=== PATIENT | female | born 1965 | race Caucasian/White ===

== ENCOUNTER 2017-01-13 16:04 | Inpatient (IN) | payer OTHER ==
[~2017-01-13] VITALS: Ht 162.6 cm; Wt 96.2 kg
--- NOTE | 2017-01-13 16:14 | ED.REPORT ---
HPI-General Illness Date of Service January 13, 2017 ED Provider: Dr. Fregoso 51 y/o female with a hx of seizures, depression, HTN, and GERD presents to the ED by EMS due to confusion and LOC, onset just prior to arrival. As per the EMS , the pt's found the pt collapsed on the bathroom floor When the EMS arrived, the pt was awake but very confused. She was Nursing Notes Stated Complaint: CONFUSION Chief Complaint: fall Allergies: Coded Allergies: Penicillins (Verified Allergy, Severe, Shortness of Breath, Swelling, 01/13) Scheduled Buspirone (Buspirone) 15 Mg Tablet 15 MG PO TID Calcitriol (Rocaltrol) 0.25 Mcg Capsule 0.5 MCG PO BID Calcium Carbonate (Tums) 500 Mg Tab.chew 1,500 MG PO QID Cyanocobalamin (Vitamin B-12) (Nascobal) 1 Each Seaforth 1 EACH NS WEEKLY 500 MCG ON MONDAYS Divalproex ER (Divalproex ER) 250 Mg Tab.er.24h 250 MG PO TID *DAILY DOSING ONLY* Swallowed whole without chewing to avoid local irritation of the mouth and throat. Duloxetine (Duloxetine) 60 Mg Capsule.dr 60 MG PO QAM Estradiol (Estradiol) 0.5 Mg Tablet 0.5 MG PO QAM Furosemide (Furosemide) 20 Mg Tab 20 MG PO QAM Gabapentin (Gabapentin) 300 Mg Capsule 900 MG PO TID Hydroxyzine Pamoate (HydrOXYzine Pamoate) 25 Mg Capsule 25-50 MG PO HS Levothyroxine (Levothyroxine) 137 Mcg Tablet 137 MCG PO QAM Lisinopril (Lisinopril) 10 Mg Tablet 10 MG PO QAM Methocarbamol (Methocarbamol) 750 Mg Tablet 750 MG PO BID Morphine Sulfate ER (MS Contin) 30 Mg Tablet.er 30 MG PO BID Venlafaxine ER (Venlafaxine ER) 150 Mg Tab.er.24 150 MG PO HS Scheduled PRN Cyclobenzaprine (Cyclobenzaprine) 10 Mg Tablet 10 MG PO BID PRN PRN Spasm Diclofenac Gel (Diclofenac Gel) 100 Gm Tube 4 GM TOPICAL QID PRN PRN JOINT PAIN Fluticasone Propionate (Fluticasone Propionate) 50 Mcg/Actuation Seaforth.susp 1 SPRAY NS DAILY PRN PRN RHINITIS Lidocaine (Lidoderm) 700 Mg Adh..patch 1-3 PATCH TP DAILY PRN PRN For Pain 12 HRS ON, 12 HRS OFF Methocarbamol (Methocarbamol) 750 Mg Tablet 750 MG PO BID PRN PRN For Spasm IN ADDITION TO SCHEDULED DOSE Morphine Sulfate (Morphine Sulfate) 15 Mg Tablet 15 MG PO Q4H PRN PRN For Pain Polyethylene Glycol 3350 (Polyethylene Glycol 3350) 17 Gm Powd.pack 17 GM PO DAILY PRN PRN For Constipation Promethazine (Promethazine) 25 Mg Tablet 25 MG PO Q6H PRN PRN For Nausea/ Vomiting Sumatriptan Succinate (Imitrex) 50 Mg Tablet 50 MG PO Q2H PRN PRN Headache TAKE 1 TABLET AT ONSET OF MIGRAINE, MAY REPEAT IN 2 HRS IF NEEDED. MAX 2 DOSES/24 HRS Tramadol (Tramadol) 50 Mg Tablet 50-100 MG PO Q6H PRN PRN For Pain oxyCODONE-Acetaminophen 7.5-325 mg (oxyCODONE-Acetaminophen 7.5-325 mg) 1 Each Tablet 1 TAB PO Q6H PRN PRN For Pain General Time Seen by MD: 16:13 Chief Complaint Other Physical Exam Vital Signs Vital Signs Date Time Temp Pulse Resp B/P Pulse Ox O2 Delivery O2 Flow Rate FiO2 01/13/17 16:56 100 16 131/90 99 Nasal Cannula 2 01/13/17 16:51 35.9 87 13 101/77 94 Room Air Interpretation & Diagnostics Lab Results Interpretation Result Diagram: 01/15/17 0638 01/16/17 0645 Test 01/13/17 16:38 01/13/17 17:30 Lactic Acid Level 1.3mmol/L (0.4-2.0) Salicylates Level < 3.0ug/mL (30-250) Acetaminophen Level < 15.0ug/mL Rx (10-25) Phenytoin (Dilantin) Level < 0.8uG/mL (10.0-20.0) Levetiracetam (Keppra) Level None detectedug/mL Alcohols < 10mg/dL (0-10) Iron Level 29ug/dL (35-150) Total Iron Binding Capacity 421ug/dL (250-450) Percent Iron Saturation 7%sat (15-50) Unsaturated Iron Binding 391.6ug/dL Ferritin 10ng/mL (13-150) Discharge & Departure Departure Notes See paper documentation on this patient during computer downtime. Primary Impression: Hypocalcemia Referrals: Khloe Khan MD (PCP) (Family) Cole Fregoso MD January 13, 2017 16:14 Gregory Loaiza January 13, 2017 16:23
[2017-01-13] MEDS ORDERED: 0.9% Sodium Chloride 1,000 ML IV ONE (16:20)
[2017-01-13 16:43] LABS: Mean Corpuscular Hemoglobin 21.1 pg (27.0-35.0); Mean Corpuscular Volume 72.4 fL (81-100)
[2017-01-13 16:51] VITALS: BP 101/77; PULSE 87; RESP 13; O2SAT 94
[2017-01-13 16:56] VITALS: BP 131/90; PULSE 100; RESP 16; O2SAT 99
--- NOTE | 2017-01-13 17:00 | DRSVH ---
PROCEDURE: CT BRAIN WITHOUT CONTRAST ([id number]) INDICATIONS: altered LOC TECHNIQUE: Noncontrast 4.5 mm thick angled axial sections acquired from the foramen magnum to the vertex, with c oronal reformats. COMPARISON: None. FINDINGS: Image quality: Diagnostic. Brain: There is no acute intra-axial or extra-axial hemorrhage. No extra-axial fluid collection is i dentified. There is no midline shift or mass effect. The orbits are grossly unremarkable. No large areas of diffusely decreased attenuation are evident within the brain to suggest diffuse cer ebral edema. Edema of the left parietal and potentially the left occipital lobes is identified with a blurring of the presley-white matter junction and mild focal cortical enlargement within this location . The ventricles and cortical sulci are age-appropriate. Bones: Calvarium and visualized facial bones are grossly intact. Mucosal thickening is noted involv ing the inferior maxillary sinuses versus a focal small mucous retention cysts. Otherwise, the image d paranasal sinuses and mastoid air cells are clear. IMPRESSION: 1. No acute intracranial hemorrhage. 2. Diffuse edema involving the left parietal and possibly left occipital lobes with blurring of the presley-white matter junction is suspicious for acute ischemia. Other etiologies cannot be excluded. M RI would be helpful for better evaluation. 3. Mild inferior maxillary sinus disease. Note: Findings were discussed with Dr. Fregoso at 1657 hours (PST) on 01/13/17. Dictated by: Vikram Briscoe M.D. on 01/13/2017 at 15:53 Approved by: Vikram Briscoe M.D. on 01/13/2017 at 15:59
[2017-01-13] MEDS ORDERED: Calcium GLUCOnate 10% 1 Gm/50 mL NS IV ONE ×2 (17:30)
--- NOTE | 2017-01-13 19:37 | PCM.EDPN ---
ED Note Date of Service January 13, 2017 Dr. Fregoso initially evaluated Ana Rosa Lemon. Evidently she had a syncopal episode tonight that was followed by some combative behavior for which the medics had actually give her ketamine. She was found to have severe hypocalcemia and an area of potential acute ischemic infarct on her head CT. When she woke up from the ketamine she was completely normal cognitively as well as peripheral nervous system. Central nervous system is completely intact as well per Dr. Fregoso. On my evaluation she is awake alert oriented 4. She offers no complaints. Her cranial nerves were individually tested and they are intact. She has an NIH stroke score of 0. She can read, visual acuity is intact and she has no extinction. She does seem to have brisk reflexes which could be from a stroke syndrome or her hypocalcemia. Either way her calcium was found to be low. Computers have been down slightly do not have access to look at her right now but has reported that it was less than 6. She is receiving a gram of IV calcium chloride I looked at the CT scan myself and I agree. It certainly looks abnormal. We will admit her to the hospital. We will replace her calcium. We will consider antiplatelet spaced after the hospitalist sees her and evaluate her surgical hemorrhage risk. She is status post recent thyroidectomy and parathyroidectomy. Currently she looks well. She is hemodynamically stable and she will be admitted to a telemetry bed. Alonzo Fenton DO January 13, 2017 19:37
[2017-01-13 20:08] VITALS: BP 117/64; PULSE 87; RESP 22; O2SAT 97
[2017-01-13] MEDS ORDERED: Alum-Mag Hydrox-Simeth 30 mL Suspension PO PRN (20:15)
[2017-01-13] MEDS ORDERED: Polyethylene Glycol (PEG) 17 Gm Powder PO PRN (20:15)
[2017-01-13] MEDS ORDERED: Labetalol 5 mg/mL 4 mL Inj IVPUSH PRN (20:15)
[2017-01-13] MEDS ORDERED: Ondansetron 2 mg/mL 2 mL Inj IVPUSH PRN (20:15)
[2017-01-13] MEDS ORDERED: hydrALAZINE 20 mg/mL Inj IVPUSH PRN (20:15)
[2017-01-13 20:16] LABS: Valproic Acid 23 ug/mL (50-125)
[2017-01-13 20:29] LABS: APPEARANCE,URINE CLEAR (CLEAR,HAZY); COLOR,URINE YELLOW (YELLOW); OCCULT BLOOD,URINE NEGATIVE (NEGATIVE); UROBILINOGEN,URINE NORMAL (NORMAL)
[2017-01-13 20:40] LABS: INR 0.95 ratio
[2017-01-13] MEDS ORDERED: CALC500T9 PO (20:47)
[2017-01-13] MEDS ORDERED: MS30TCR PO (20:47)
[2017-01-13] MEDS ORDERED: CALC0.257 PO (20:47)
[2017-01-13] MEDS ORDERED: MORP15TA PO (20:55)
[2017-01-13] MEDS ORDERED: HYDR-3797 PO (20:55)
[2017-01-13] MEDS ORDERED: CYCL10TA9 PO (20:55)
[2017-01-13] MEDS ORDERED: DICL100G26 TOPICAL (20:55)
[2017-01-13] MEDS ORDERED: GABA-502 PO (20:55)
[2017-01-13] MEDS ORDERED: TRAM50TA2 PO (20:55)
[2017-01-13] MEDS ORDERED: ESTR0.5T PO (20:55)
[2017-01-13] MEDS ORDERED: OXYC-465 PO (20:55)
[2017-01-13] MEDS ORDERED: METH750T3 PO (20:56)
[2017-01-13] MEDS ORDERED: FLUT15.88 NS (21:00)
[2017-01-13] MEDS ORDERED: FUR20 PO (21:00)
[2017-01-13] MEDS ORDERED: DULO60CA61 PO (21:00)
[2017-01-13] MEDS ORDERED: BUSP15TA3 PO (21:00)
[2017-01-13] MEDS ORDERED: LEVO137T2 PO (21:00)
[2017-01-13] MEDS ORDERED: VENL150T3 PO (21:00)
[2017-01-13] MEDS ORDERED: POLY17PO2 PO (21:00)
[2017-01-13] MEDS ORDERED: SUMA50TA31 PO (21:00)
[2017-01-13] MEDS ORDERED: DIVA250T12 PO (21:00)
[2017-01-13] MEDS ORDERED: LIDO700A6 TP (21:01)
[2017-01-13] MEDS ORDERED: PROM25TA14 PO (21:02)
[2017-01-13] MEDS ORDERED: LISI10TA PO (21:02)
[2017-01-13] MEDS ORDERED: CYAN1SPR2 NS (21:06)
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
[2017-01-13 21:39] VITALS: BP 119/67; PULSE 82; RESP 18; O2SAT 98
[2017-01-13 23:05] LABS: Unsaturated Iron Binding 391.6 ug/dL
[2017-01-13] MEDS ORDERED: Calcium GLUCO 10% (Gm) Inj 2 GM in 0.9% Sodium Chloride 100 ML IV ONE (23:35)
[2017-01-13] MEDS: Venlafaxine XR 75 mg ER24 Capsule PO SCH (23:39)
[2017-01-13] MEDS: Divalproex (QD) 250 mg ER24 Tablet PO SCH (23:39)
[2017-01-13] MEDS: Heparin 5,000 Unit/mL Inj SUBQ SCH (23:44)
[2017-01-14] VITALS (14 sets, daily range): BP systolic 98–128; BP diastolic 63–83; PULSE 72–90; RESP 12–24; O2SAT 95–98
--- NOTE | 2017-01-14 00:25 | NUR ---
Admission Pt admitted for fall at home. No noted bruises/abrasions. Denies pain. Hx of anxiety. Unable to do MRI despite two attempts. Reviewed fall precautions. Pt understands use of call light prior to getting up OOB She is steady on her feet. COmpliant with cares. Understands necessity of thickened liq/applesauce until AM Stroke booklet at bedside.
[2017-01-14] MEDS ORDERED: Magnesium Sulfate 50% Inj 1 GM in Dextrose 5% 50 ML IV ONE (01:30)
[2017-01-14] MEDS ORDERED: Mag Sulf 2 Gm/50mL IV Premix(Mag < 1.6 & Creat > 2) IV ONE (01:35)
[2017-01-14] MEDS ORDERED: 0.9% Sodium Chloride 500 ML IV ONE (02:10)
[2017-01-14] MEDS: HYDROcodone-APAP 5-325 mg Tablet PO PRN ×2 (05:31→21:01)
[2017-01-14 06:33] LABS: BASOPHILS % (AUTO) 1.5 % (0-3); EOSINOPHILS % (AUTO) 7.5 % (0-5); MONOCYTES % (AUTO) 12.7 % (4-12); Mean Corpuscular Hemoglobin 21.2 pg (27.0-35.0); Mean Corpuscular Volume 71.8 fL (81-100); Platelet Count 219 bil/L (150-400)
[2017-01-14 07:07] LABS: Magnesium 1.9 mg/dL (1.6-2.6)
[2017-01-14] MEDS: Divalproex (QD) 250 mg ER24 Tablet PO SCH ×3 (08:10→21:03)
[2017-01-14] MEDS: DULoxetine 30 mg DR Capsule PO SCH (08:13)
[2017-01-14] MEDS: BusPIRone 15 mg Dividose Tablet PO SCH ×3 (08:14→21:03)
[2017-01-14] MEDS: Morphine ER 15 mg (MS Contin) Tablet PO SCH ×2 (08:14→21:01)
[2017-01-14] MEDS: Heparin 5,000 Unit/mL Inj SUBQ SCH ×2 (08:15→17:58)
[2017-01-14] MEDS ORDERED: 0.9% Sodium Chloride 250 ML IV PRN (11:20)
[2017-01-14] MEDS ORDERED: Calcium GLUCO 10% (Gm) 1 Gm/10 mL 50 mL Inj IV PRN (11:20)
--- NOTE | 2017-01-14 11:39 | PCM.PNMED ---
Subjective Date of Service January 14, 2017 Subjective Doing OK this AM. Patient reports no neurological deficits. No further seizure , few muscle cramps. No other problems noted since admit. No head ache. Thyroidectomy last Monday at [facility]. Exam Vital Signs Vital Sign - Last Date Time Temp Pulse Resp B/P Pulse Ox O2 Delivery O2 Flow Rate FiO2 01/14/17 11:10 36.8 87 20 116/71 95 Room Air 01/13/17 16:56 2 Intake and Output 01/13/17 01/13/17 01/14/17 Cumulative From/Thru 15:00 23:00 07:00 01/13/17 20:03 - 01/14/17 06:45 Intake Total 500 ml 125 ml 625 ml Output Total 1500 ml 1500 ml Balance 500 ml -1375 ml -875 ml Intake Oral 125 ml 125 ml IV Total 500 ml 500 ml Output Urine Total 1500 ml 1500 ml # Voids 1 1 Exam A&O x 3, Eyes surya eom intact, no focal motor or sensory defects CV, no murmur, reg Resp; Clear GI; soft non acute, Skin; well healing ant neck surgical scar. Lab and Diagnostics Result Diagram: 01/14/17 0600 01/14/17 0600 X-Rays, CTs and MRIs PROCEDURE: CT BRAIN WITHOUT CONTRAST ([id number]) IMPRESSION: 1. No acute intracranial hemorrhage. 2. Diffuse edema involving the left parietal and possibly left occipital lobes with blurring of the presley-white matter junction is suspicious for acute ischemia. Other etiologies cannot be excluded. MRI would be helpful for better evaluation. 3. Mild inferior maxillary sinus disease. Assessment & Plan 51 yo F history of depression, htn, seizure disorder, and recent thyroidectomy who presented to the ED due to syncopal episode with noted aphasia. Admitted for evaluation of CVA vs Seizure, Hypocalcemia 1. Syncopal Episode, POA, resolved -Possibly due to Seizure secondary to multiple medications lower seizure threshold or secondary to her severe Hypocalcemia. Could also be due to a CVA since she does have the acute ischemia noted on CT scan. -Patient's Valproic acid levels were subtherapeutic and she is on multiple seizure threshold lowering medications. -continue dose of depakot, recheck level in AM -eeg 2. Left parietal-occipital abnormality on CT, possible ischemia, POA, active -As noted on CT Brain. Unsure if this represents a CVA. MRI done results pending -echo -PT/OT evaluation -Patient currently asymptomatic and passed swallow screen. -Full dose aspirin and Statin initiated -Lipid Panel and A1c pending. 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 Pt provides no s/s of acute bleeding. She has been without teeth for 2 years now and struggles to eat any high iron meals. -Ht 22.7 today, 2 unit PRC today, cbc in am -ferrous gluconate bid 5- Recent thyroidectomy and parathyroidectomy, POA, active -TSH and FT4 OK, continue synthroid .137 6-Seizure disorder, POA, active -Patient's Valproic level was subtherapeutic at 23.0 on admission -Will plan to continue the Divalproex and recheck level in am -Will implement seizure precautions. -EEG in the AM. 7. Anxiety and depression, POA, stable -Plan to continue patient's Venlafaxine, Buspirone, and Duloxetine for now. She has fairly severe anxiety -Ativan when necessary for agitation and anxiety -She will need medication reconciliation 8.H/O Hormone Replacement Therapy, POA, stable -Currently on Estradiol 0.5mg daily for years. -In this high risk patient, will decrease dose to Estradiol 0.25mg daily. She should be evaluated and tapered off as appropriate. 9- Chronic LBP, POA, stable -Patient is on high dose narcotics for her back and hip pain. Recent increased to MS Contin 30mg BID. -Will plan to continue MS Contin at 15mg BID, Will continue Methocarbamol and Gabapentin 10- Essential hypertension, POA, stable -Stable, hold Lisinopril while allowing for permissive hypertension Tylenol when necessary for fever/pain Zofran when necessary for nausea Bowel regimen when necessary for constipation CODE STATUS: Full resuscitation Disposition: Patient is admitted under inpatient status with expected length of stay greater than 2 midnights due to risk of adverse events, decompensation, and medical complexity VTE Prophylaxis: Sub-Q Heparin (Unfractionated), SCDs VTE Mechanical Devices: Intermittant Pneumatic CD Resuscitation Status: CPR: Attempt Resuscitation Josias Amador MD January 14, 2017 11:39
--- NOTE | 2017-01-14 11:42 | DRSVH ---
PROCEDURE: MRI STROKE PROTOCOL ([id number]) Pre- and post-contrast brain MRI, non-contrast brain MR angiogram, pre- and postcontrast neck MR gregory ogram INDICATIONS: SYNCOPAL EPISODE,DYSARTHRIA TECHNIQUE: Brain: Noncontrast axial T1 spin echo, axial T2 fast spin echo, sagittal and axial FLAIR, coronal T2 fast spin echo, axial gradient echo, axial diffusion and ADC through the brain. After the administr ation of contrast, axial 3D VIBE of the cranial vasculature and brain. Brain MRA: Non-contrast 3-D time of flight MR angiogram, with multiple azgaxsh-plqzrduze-uztnblvbex (MIP) reformats performed. Neck MRA: Axial and sagittal TruFISP through the neck. Coronal dynamic MR angiogram during administ ration of contrast in the arterial and venous phases, with 3-dimenstional dduedru-zifollgrh-zaasfesqm n (MIP) reformats constructed from subtraction images. COMPARISON: [facility], CT, CT NECK SOFT TISSUE W CON, 12/21/2016, 11:09. [facility], CT, CT BRAIN WO CON, 01/13/2017, 16:47. FINDINGS: Image quality: Motion artifacts are present. BRAIN: CSF spaces: Ventricles are normal in size and shape. Basal cisterns are patent. No extra-axial flu id collections. Brain: No intracranial bleeds or mass effects. Lomax-white matter interface is normal. Diffusion we ighted images show no acute ischemic insults. Brainstem appears normal. Normal intravascular flow v oids are present. No abnormal intracranial enhancement. Skull and face: Calvarial marrow signal is normal. Orbits appear normal. Sinuses: Sinuses and mastoids are clear. BRAIN MR ANGIOGRAM: Anterior circulation: Intracranial internal carotid arteries are normal in size and enhancement. Th e flow within the paired anterior cerebral arteries is normal and symmetric. The flow within the mid dle cerebral arteries is normal and symmetric. The anterior communicating artery is seen. No stenos es, occlusions, or aneurysms. Posterior circulation: The visualized portions of the vertebral arteries demonstrate normal caliber, and join to form a normal appearing basilar artery. There is origin of the left posterior cer ebral artery. The flow within the posterior cerebral arteries is normal and symmetric. No stenoses, occlusions, or aneurysms. NECK MR ANGIOGRAM: Carotids: Great vessels demonstrate a conventional anatomy as they arise from the aortic arch. The origins of the common carotid arteries appear patent. The calibers and courses of both common caroti d arteries are normal. The bifurcation regions appear normal bilaterally. The internal carotid jame pete demonstrate normal course and caliber. Posterior circulation: The origins of the vertebral arteries appear patent. More superior portions of both vertebral arteries demonstrate normal course and caliber, and join to form a normal appearing basilar artery. Miscellaneous: Subclavian arteries appear patent. Pre-contrast images through the neck show no soft tissue abnormalities. IMPRESSION: BRAIN MRI: 1. No acute intracranial abnormalities. BRAIN MR ANGIOGRAM: 1.No significant stenosis or occlusion in anterior or posterior circulations. 2. origin of the left posterior cerebral artery. NECK MR ANGIOGRAM: 1. Normal carotid arteries and vertebral arteries bilaterally. 2. A large left thyroid mass. Please correlate with findings on neck CT and thyroid ultrasound. The estimate of stenosis included in the report of the imaging study was calculated using the NASCET method Dictated by: Eugenie Torrez M.D. on 01/14/2017 at 11:34 Transcribed by: SHAHNAZ on 01/14/2017 at 11:41 Approved by: Eugenie Torrez M.D. on 01/15/2017 at 15:28
--- NOTE | 2017-01-14 12:16 | NUR ---
Evaluation completed/up ad scott Please go to "Notes" then click on "Assessments and Notes" (bottom left corner of screen). Then select appropriate discipline tab on top of screen. no further PT; OK to be up ad scott
--- NOTE | 2017-01-14 14:04 | DRSVH ---
[facility] [address] [place] [address] Echocardiogram Report Name: ABE SEGURA Date: 01/14/2017 Height: 64 in Hospital Exam Location: [facility] Weight: 212 lb Gender: Female BSA: 2.0 m2 : 1965 Age: 51 yrs BP: 118/74 mmHg Reason For Study: CVA Ordering Physician: KARLA REIS Performed By: Mikey Belle Referring Physician: Taran SOLORIO Interpretation Summary The left ventricle is normal in size, wall thickness, and systolic function without any focal wall motion abnormalities with the ejection fraction estimated to be 60-65% with diastolic parameters suggesting a relaxation abnormality of the left ventricle, consistent with normal filling pressures. The right ventricle is normal in size and function. The right ventricular systolic pressure is estimated at 26 mmHg assuming a right atrial pressure of 3 mm Hg. The left atrium is mildly dilated. Right atrial size is normal with a prominent Chiari network which is a normal variant. The interatrial septum is intact with no Doppler or contrast injection evidence for an atrial septal defect or interatrial shunt. There is mild to moderate tricuspid regurgitation but no other significant valvular heart disease. The ascending aorta is mildly enlarged. Procedure: A two-dimensional transthoracic echocardiogram with color flow and Doppler was performed. The study quality was technically adequate. There is no prior echocardiogram noted for this patient. A saline contrast injection was performed to assess for cardiac shunting. The suprasternal views were not obtained due to recent thyroid surgery. The patient was in normal sinus rhythm during the exam. Left Ventricle: The left ventricle is normal in size, wall thickness, and systolic function without any focal wall motion abnormalities. The ejection fraction is estimated to be 60-65%. Assessment of diastolic parameters indicates a relaxation abnormality of the left ventricle, consistent with normal filling pressures. Right Ventricle: The right ventricle is normal in size and function. Atria: The left atrium is mildly dilated. Right atrial size is normal. Chiari network (normal variant) is noted. The interatrial septum is intact with no evidence for an atrial septal defect. Injection of contrast documented no interatrial shunt. There is no Doppler evidence for an atrial septal defect. Mitral Valve: The mitral valve is normal in structure and function. There is trace mitral regurgitation. Aortic Valve: The aortic valve is normal in structure and function. The aortic valve is trileaflet. The aortic valve opens well. No aortic regurgitation is present. Tricuspid Valve: The tricuspid valve is normal in structure and function. There is mild to moderate tricuspid regurgitation. The right ventricular systolic pressure is estimated at 26 mmHg assuming a right atrial pressure of 3 mm Hg. Pulmonic Valve: The pulmonic valve is normal in structure and function. There is no pulmonic valvular regurgitation. There is no other significant valvular heart disease. Great Vessels: The aortic root is normal size. The ascending aorta is mildly enlarged. The pulmonary artery is normal size. The IVC is of normal diameter and collapses greater than 50% with a sniff. This suggests a low right atrial pressure of 3 mm Hg. Pericardium/ Pleura There is no pericardial effusion. There is no pleural effusion. MMode/2D Measurements & Calculations LVIDd: 5.2 cm LA dimension: 4.2 cm RA long axis Ao root diam LVIDs: 2.5 cm FS: 52.9 % LA A2 area: 22.8 cm RA area Aortic Jxn EPSS: 0.31 cm LA A4 area: 25.3 cm IVSd: 0.70 cm LA length (vol): 6.1 cm : 16.4 cm asc Aorta LVPWd: 0.78 cm LA vol: 80.4 ml RA vol: 41.4 mlDiam: 3.7 cm LA vol index RA : 20.6 mm2 IVC diam: 2.0 cm LV gonzalez. diameter/BSA LV sys. diameter/BSA (cm/m^2): 2.6 (cm/m^2): 1.2 Doppler Measurements & Calculations Ao V2 max MV E max jalen MV E/A: 0.92 TR max jalen : 149.7 cm/sec : 84.6 cm/sec Med Peak E' Jalen : 238.0 cm/sec Ao max PG MV A max jalen TR max P.7 mmHg : 9.0 mmHg : 92.0 cm/sec E/E' med: 10.1 PA V2 max: 89.0 cm/sec Ao mean PG Pulm A Revs Dur PA mean P.0 mmHg : 5.5 mmHg PA Accel Time: 0.11 sec MV A dur: 0.11 sec MV dec time Ao V2 mean PA V2 mean Pulm A Revs Dur - MV A : 0.20 sec : 113.8 cm/sec : 67.3 cm/sec Dur: -0.02 msec Ao V2 VTI PA pr(Accel) : 34.1 cm : 29.1 mmHg Reading Physician:02:04 PM
--- NOTE | 2017-01-14 15:23 | NUR ---
Social Work: Screening Data: Pt is a 51 y/o female admitted for syncope, hypocalcemia, abnormal head ct. Pt's PCP is Dr Khan, pt's insurance is [employer]. EMR reviewed. Readmit score not listed. No d/c planning needs anticipated at this time. [facility] will continue to follow if needs arise. Assessment: Pt who is independent at baseline. Plan: Pt will d/c home via POV when medically stable. No d/c planning needs anticipated at this time. [facility] will continue to follow if needs arise. FLORA Shabazz
[2017-01-14] MEDS: Calcium GLUCO 10% (Gm) Inj 2 GM in 0.9% Sodium Chloride 50 ML IV PRN (15:31)
--- NOTE | 2017-01-14 18:36 | NUR ---
Student nurse note RBC x1 infused into patient. No adverse side effects. See patient flowsheet. Second unit of blood infusing at current rate. No adverse side effects noted. See vital sign flow sheet for vital signs.
[2017-01-14] MEDS: Venlafaxine XR 75 mg ER24 Capsule PO SCH (21:08)
[2017-01-15] VITALS (8 sets, daily range): BP systolic 104–141; BP diastolic 64–81; PULSE 75–97; RESP 18–20; O2SAT 95–98
[2017-01-15] MEDS: Heparin 5,000 Unit/mL Inj SUBQ SCH ×3 (00:19→16:42)
[2017-01-15 06:58] LABS: Mean Corpuscular Hemoglobin 22.3 pg (27.0-35.0); Mean Corpuscular Volume 73.8 fL (81-100)
--- NOTE | 2017-01-15 08:33 | PCM.PNMED ---
Subjective Date of Service January 15, 2017 Subjective Feeling better, still needing IV calcium for CA <7.5. No other problems or complaints noted today. No new seizure, tolerating all medications. Exam Vital Signs Vital Sign - Last Date Time Temp Pulse Resp B/P Pulse Ox O2 Delivery O2 Flow Rate FiO2 01/15/17 06:15 36.9 78 20 128/79 95 Room Air 01/13/17 16:56 2 Intake and Output 01/14/17 01/14/17 01/15/17 Cumulative From/Thru 15:00 23:00 07:00 01/13/17 20:03 - 01/15/17 02:11 Intake Total 664 ml 1515 ml 374 ml 3178 ml Output Total 950 ml 2450 ml Balance 664 ml 565 ml 374 ml 728 ml Intake Oral 1036 ml 1161 ml IV Total 664 ml 250 ml 74 ml 1488 ml Packed Cells 229 ml 300 ml 529 ml Output Urine Total 950 ml 2450 ml # Voids 1 # Bowel Movements 1 1 Exam A&O x 3, Eyes surya eom intact, no focal motor or sensory defects CV, no murmur, reg Resp; Clear GI; soft non acute, Skin; well healing ant neck surgical scar, bit larger on the L side, bit swollen but no sign of infection. Lab and Diagnostics Result Diagram: 01/15/1763701/15/17637 X-Rays, CTs and MRIs PROCEDURE: CT BRAIN WITHOUT CONTRAST ([id number]) IMPRESSION: 1. No acute intracranial hemorrhage. 2. Diffuse edema involving the left parietal and possibly left occipital lobes with blurring of the presley-white matter junction is suspicious for acute ischemia. Other etiologies cannot be excluded. MRI would be helpful for better evaluation. 3. Mild inferior maxillary sinus disease. Assessment & Plan 51 yo F history of depression, htn, seizure disorder, and recent thyroidectomy who presented to the ED due to syncopal episode with noted aphasia. Admitted for evaluation of CVA vs Seizure, Hypocalcemia 1. Syncopal Episode, POA, resolved -Possibly due to Seizure secondary to multiple medications lower seizure threshold or secondary to her severe Hypocalcemia. Could also be due to a CVA since she does have the acute ischemia noted on CT scan. -Patient's Valproic acid levels were subtherapeutic and she is on multiple seizure threshold lowering medications. -continue dose of depakot, recheck level in AM -eeg 2. Left parietal-occipital abnormality on CT, possible ischemia, POA, active -MRI/MRA brain normal,,, no evidence of findings noted on CT, Motion artifact? 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 Jones 4- Microcytic Anemia, POA, active -Chronicity unknown, likely due to iron deficiency. Pt provides no s/s of acute bleeding. She has been without teeth for 2 years now and struggles to eat any high iron meals. -Ht 22.7 today, 2 unit PRC 01/14/17, cbc today hb now 8.6 -ferrous gluconate bid 5- Recent thyroidectomy and parathyroidectomy, POA, active -TSH and FT4 OK, continue synthroid .137 -thyroid mass L side per CT, will obtain ultrasound 6-Seizure disorder, POA, active -Patient's Valproic level was subtherapeutic at 23.0 on admission -Will plan to continue the Divalproex and recheck level in am -Will implement seizure precautions. -EEG in the AM. 7. Anxiety and depression, POA, stable -Plan to continue patient's Venlafaxine, Buspirone, and Duloxetine for now. She has fairly severe anxiety -Ativan when necessary for agitation and anxiety -She will need medication reconciliation 8.H/O Hormone Replacement Therapy, POA, stable -Currently on Estradiol 0.5mg daily for years. -In this high risk patient, will decrease dose to Estradiol 0.25mg daily. She should be evaluated and tapered off as appropriate. 9- Chronic LBP, POA, stable -Patient is on high dose narcotics for her back and hip pain. Recent increased to MS Contin 30mg BID. -Will plan to continue MS Contin at 15mg BID, Will continue Methocarbamol and Gabapentin 10- Essential hypertension, POA, stable -Stable, hold Lisinopril while allowing for permissive hypertension Tylenol when necessary for fever/pain Zofran when necessary for nausea Bowel regimen when necessary for constipation CODE STATUS: Full resuscitation Disposition: Patient is admitted under inpatient status with expected length of stay greater than 2 midnights due to risk of adverse events, decompensation, and medical complexity VTE Prophylaxis: Sub-Q Heparin (Unfractionated), SCDs VTE Mechanical Devices: Intermittant Pneumatic CD Resuscitation Status: CPR: Attempt Resuscitation Josias Amador MD January 15, 2017 08:33
[2017-01-15] MEDS: Calcium GLUCO 10% (Gm) Inj 2 GM in 0.9% Sodium Chloride 50 ML IV PRN ×2 (08:36→17:45)
[2017-01-15] MEDS: DULoxetine 30 mg DR Capsule PO SCH (08:36)
[2017-01-15] MEDS: BusPIRone 15 mg Dividose Tablet PO SCH ×3 (08:37→19:53)
[2017-01-15] MEDS: Morphine ER 15 mg (MS Contin) Tablet PO SCH ×2 (08:38→19:56)
[2017-01-15] MEDS: Divalproex (QD) 250 mg ER24 Tablet PO SCH ×3 (08:39→19:59)
--- NOTE | 2017-01-15 11:39 | NUR ---
Pt evaluated by ST on 01/14/17 and was placed on a general/thin diet. Per pt and RN report, the pt is tolerating that diet well. ST will sign off at this time.
[2017-01-15] MEDS: HYDROcodone-APAP 5-325 mg Tablet PO PRN ×5 (11:48→21:52)
--- NOTE | 2017-01-15 11:55 | DRSVH ---
PROCEDURE: US SOFT TISSUE OF HEAD OR NECK SONOGRAM INDICATIONS: Status post thyroidectomy with fullness in the left thyroid bed. TECHNIQUE: Real-time scanning was performed of the neck region of interest, with image documentation. COMPARISON: Merged With [facility], CT, CT NECK SOFT TISSUE W CON, 12/21/2016, 11:09. FINDINGS: No discrete fluid collections demonstrated within the thyroid bed. There is mild subcutaneous edema. A few scattered lymph nodes are noted neck which appear normal in size. There is segmental occlusive thrombus demonstrated within a superficial vein in the right anterior ne ck. The internal jugular vein appears patent. IMPRESSION: 1. No discrete fluid collections in the surgical bed to suggest a definite abscess or hematoma. 2. Segmental occlusion of a superficial vein in the right anterior neck compatible with thrombophleb itis. If clinical concern persists, recommend further evaluation with CT. Dictated by: Catalino Solis M.D. on 01/15/2017 at 11:46 Approved by: Catalino Solis M.D. on 01/15/2017 at 11:49
--- NOTE | 2017-01-15 14:41 | NUR ---
Neck/Thyroid US Neck/thyroid US done. Dr. Amador was notified that the result was available on line.
--- NOTE | 2017-01-15 18:11 | NUR ---
Calcium level Calcium level 6.3 this morning. Calcium gluconate 2g IV given. Repeat Calcium level 7.0 at 1600. Calcium gluconate 2g IV infusing now.
[2017-01-15] MEDS: Venlafaxine XR 75 mg ER24 Capsule PO SCH (19:52)
[2017-01-16] VITALS (8 sets, daily range): BP systolic 109–131; BP diastolic 62–82; PULSE 69–93; RESP 18–20; O2SAT 95–97
[2017-01-16] MEDS: Heparin 5,000 Unit/mL Inj SUBQ SCH ×3 (00:45→16:41)
[2017-01-16] MEDS ORDERED: diphenhydrAMINE 25 mg Capsule PO ONE (01:25)
[2017-01-16] MEDS: HYDROcodone-APAP 5-325 mg Tablet PO PRN ×5 (01:37→19:13)
--- NOTE | 2017-01-16 03:53 | NUR ---
Anxiety / Pain / Steri-strips Anxiety not under control. Patient changed into street clothes, talked about missing family and wanting to go home with statements: "I am leaving in the morning" and "I asked my to bring in my prescriptions, but he wouldn't saying I can only take medications the hospital gives me." Morphine ER 15mg BID is not effective when taking 30mg BID at home and taking Q4 15mg Morphine Sulfate PRN. And taking Tramadol 50mg Q6 at home as well. One hour and thirty minutes after receiving 2x [place] was requesting more. After receiving [place] + One Time order of Benadryl 25mg asked to have again 110 minutes later. Temazepam 15mg for Insomnia was ineffective. Due to Anxiety is constantly feeling and rubbing around steri-strips from thyroidectomy 01/10/17. Provided patient educational documentation on proper care and maintenance of steri-strips, post operative care from [employer] Patient Information documentation. Currently non-febrile without observable drainage or red streaking around incision.
[2017-01-16 07:22] LABS: Magnesium 1.7 mg/dL (1.6-2.6); Phosphorus 6.6 mg/dL (2.5-4.9)
[2017-01-16] MEDS: BusPIRone 15 mg Dividose Tablet PO SCH (08:14)
[2017-01-16] MEDS: DULoxetine 30 mg DR Capsule PO SCH (08:15)
[2017-01-16] MEDS: Divalproex (QD) 250 mg ER24 Tablet PO SCH ×3 (08:15→20:34)
[2017-01-16] MEDS: Morphine ER 15 mg (MS Contin) Tablet PO SCH (08:17)
[2017-01-16] MEDS ORDERED: Lidocaine Topical 5% Patch TOPICAL PRN (11:40)
[2017-01-16] MEDS ORDERED: Calcium Chl 10% (Gm) Inj 1 GM in Dextrose 5% 100 ML IV ONE (11:45)
[2017-01-16] MEDS ORDERED: Calcium GLUCO 10% (Gm) Inj 1 GM in 0.9% Sodium Chloride 50 ML IV SCH (12:15)
--- NOTE | 2017-01-16 12:15 | PCM.PNMED ---
Subjective Date of Service January 16, 2017 Subjective Patient states that she is feeling much better and wanting to go home. She had no further episodes of syncopal/seizure events. States that she is on a lot of pain medication at home, and she would like to go home to take her pain meds. He did place her pain medicines were held due to concern for her medical condition upon arrival, her thyroid surgeon was contacted this a.m. and he states that he agreeswith the current plan he has nothing else to add. He does state that her baseline calcium was low at 7.5 so perhaps it harder to get her up to about 7.5 she denies fevers/chills Exam Vital Signs Vital Sign - Last Date Time Temp Pulse Resp B/P Pulse Ox O2 Delivery O2 Flow Rate FiO2 01/16/17 00:37 36.8 75 20 123/80 97 Room Air 01/13/17 16:56 2 Intake and Output 01/15/17 01/15/17 01/16/17 Cumulative From/Thru 15:00 23:00 07:00 01/13/17 20:03 - 01/15/17 18:10 Intake Total 1136 ml 1216 ml 5530 ml Output Total 1600 ml 4050 ml Balance 1136 ml -384 ml 1480 ml Intake Oral 1136 ml 1096 ml 3393 ml IV Total 120 ml 1608 ml Packed Cells 529 ml Output Urine Total 1600 ml 4050 ml # Voids 1 2 # Bowel Movements 0 1 Exam Gen.: Pleasant female in no acute distress HEENT: Normocephalic, atraumatic well-healing surgical incisions below the thyroid level Neck: Negative for thyroid place, negative for JVD, Trachea central Lungs: Clear to auscultation bilaterally no crackles or wheezes Abdomen soft nondistended Extremities negative for edema Psychiatric negative for anxiety Neuro: No focal deficits IVs and Medications Medications Reviewed: Medications were reviewed in detail Lab and Diagnostics Result Diagram: 01/15/17 0638 01/15/17 0745 X-Rays, CTs and MRIs PROCEDURE: CT BRAIN WITHOUT CONTRAST ([id number]) IMPRESSION: 1. No acute intracranial hemorrhage. 2. Diffuse edema involving the left parietal and possibly left occipital lobes with blurring of the presley-white matter junction is suspicious for acute ischemia. Other etiologies cannot be excluded. MRI would be helpful for better evaluation. 3. Mild inferior maxillary sinus disease. Assessment & Plan 51 yo F history of depression, htn, seizure disorder, and recent thyroidectomy who presented to the ED due to syncopal episode with noted aphasia. Admitted for evaluation of CVA vs Seizure, Hypocalcemia 1. Syncopal Episode, POA, resolved -Possibly due to Seizure secondary to multiple medications lower seizure threshold or secondary to her severe Hypocalcemia. Could also be due to a CVA since she does have the acute ischemia noted on CT scan. -Patient's Valproic acid levels were subtherapeutic and she is on multiple seizure threshold lowering medications. -continue dose of depakot, recheck level in AM -eeg is done, normal per Dr. Lemus 2. Left parietal-occipital abnormality on CT, possible ischemia, POA, active -MRI/MRA brain normal,,, no evidence of findings noted on CT, Motion artifact? 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 Jones, patient's thyroid surgeon is contacted: Surgeon was contacted and he has no further recommendations. Does say that her baseline calcium is 7.5 prior to the surgery -- Endocrinology is consulted: Switch patient to Tums 1500 mg 4 times a day, ionized calcium levels are ordered for 01/17 4- Microcytic Anemia, POA, active -Chronicity unknown, likely due to iron deficiency. Pt provides no s/s of acute bleeding. She has been without teeth for 2 years now and struggles to eat any high iron meals. -Ht 22.7 today, 2 unit PRC 01/14/17, cbc today hb now 8.6 -ferrous gluconate bid: 5- Recent thyroidectomy and parathyroidectomy, POA, active -TSH and FT4 OK, continue synthroid .137 -thyroid mass L side per CT, will obtain ultrasound 6-Seizure disorder, POA, active -Patient's Valproic level was subtherapeutic at 23.0 on admission -Will plan to continue the Divalproex and recheck level in am -Will implement seizure precautions. -EEG in the AM.: She had the test done, f/u on results: Dr. Lemus says it is normal 7. Anxiety and depression, POA, stable -Plan to continue patient's Venlafaxine, Buspirone, and Duloxetine for now. She has fairly severe anxiety -Ativan when necessary for agitation and anxiety -- Left a message for PCP to call back patient sees Dr. Khloe berumen: Contacted PCP regarding multiple overlapping medications. PCP stated that patient is very difficult to manage and very complicated. I recommended to her that patient be seen by a psychiatrist for her anxiety as she is on 4 medications for this. Also mentioned patient being on both Robaxin and Flexeril for muscle relaxer. 8.H/O Hormone Replacement Therapy, POA, stable -Currently on Estradiol 0.5mg daily for years. -In this high risk patient, will decrease dose to Estradiol 0.25mg daily. She should be evaluated and tapered off as appropriate. 9- Chronic LBP, POA, stable -Patient is on high dose narcotics for her back and hip pain. Recent increased to MS Contin 30mg BID. restarted MS Contin 30 mg twice a day, Morphine may IR started at half dose. -- Still holding tramadol, robaxin 10- Essential hypertension, POA, stable -Still low BP, continue to hold lisinopril Tylenol when necessary for fever/pain Zofran when necessary for nausea Bowel regimen when necessary for constipation CODE STATUS: Full resuscitation Disposition: Patient is admitted under inpatient status with expected length of stay greater than 2 midnights due to risk of adverse events, decompensation, and medical complexity Pain Evaluation: Pain not Controlled VTE Prophylaxis: Sub-Q Heparin (Unfractionated), SCDs Resuscitation Status: CPR: Attempt Resuscitation Time spent 30 min Emeli Pandya DO January 16, 2017 06:14
--- NOTE | 2017-01-16 18:03 | NUR ---
Anxiety / pain Patient's pain consistently 7-8/10 during day shift on modified home pain medication regime ordered on admit. MD made aware and has adjusted pain meds. Patient has increased relief and reports pain in back and neck at 6-7/10. Pulse ox in place for safety while titrating pain meds. Patient's anxiety has been reduced (per patient self report) now that medication regime restored. Patient states "I know you guys are doing a good job". Patient calm and cooperative with care during day shift. Bed low and locked, call light in reach, care and rounding ongoing.
--- NOTE | 2017-01-16 18:55 | PCM.CHPMED ---
Subjective Date of Service: January 16, 2017 Primary Physician: Admitting Physician: Joan Robins DO Primary Care Physician: Khloe Khan MD Attending Physician: Jaon Robins DO Chief Complaint: Chief Complaint: Endocrinology Consult (Initial): Asked by Dr. Pandya to consult regarding 51 yo woman admitted for syncope experiencing post-thyroidectomy hypoparathyroidism. Pt was admitted with syncope and encephalopathy, but feels at her baseline today without complaints. 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 She was on chronic l-T4 replacement 137.5 mcg/d for presumed hypothyroidism. Her operation seems to have been near-total thyroidectomy. Pt and are under false impression that parathyroid glands were also removed, which is very unlikely. There was no ectopic parathyroid implantation procedure. She experienced post operative hypocalcemia. Her pre-operative baseline total calcium was reported to be ~7.5 mEq/dl. She was discharged home on calcitriol 0.5 mg BID and calcium carbonate 1500 mg QID. She experienced circumoral paresthesia briefly at home, which responded to oral calcium and has not recurred since 01/10/17. She has no prior history of calcium disorders. 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 She does not report diarrhea or steatorrhea. She consumes dairy products. She saw an Web Content Manager in the [facility] system. Two days after discharge, she experienced (per report) a sensation of feeling faint, attributed to hypoglycemia. While her prepared a snack, she was found minimally responsive in the bathroom. She has no recollection. reports stuttering and disorientation, but pt was physically intact, even combative with EMS. Work up for CVA and arrhythmia have been negative. She was noted to have serum total Ca++ 6.8 on admission with positive physical signs , [place] and hyperreflexia. She has received aggressive IV calcium replacement. Serum total calcium remains in range of 6.3-7.0, although serum albumin has declined from 3.7 to 3.1. Calculated ionized calcium on 01/15 was 3.46 (3.5-5.2). Serum magnesium was initially low, at 1.5, but is now normal. She has had no further paresthesia. No further syncope. Review of Systems: 11 systems reviewed: notable for + leg muscle cramps; nor circumoral or distal paresthesia; no diarrhea; no bone fractures; no kidney stones; no further syncope or encephalopathy PMH Past Medical History Seizure disorder - valproic acid GALINDO/postmenopausal - on estrogen Chronic hypothyroidism - on replacement, prior to surgery GAstric lee-en-y bypass Anxiety & depression . Allergies: Coded Allergies: Penicillins (Verified Allergy, Severe, Shortness of Breath, Swelling, 01/13) Family History Family History No thyroid cancer, neck surgery or thyroid disorder. No calcium problems. Social History Hx Alcohol Use: NoHx Substance Use: NoHx Tobacco Use: Yes Smoking Status: Current Some Day Smoker Living Arrangement: with Family Exam Vital Signs Vital Sign - Last Date Time Temp Pulse Resp B/P Pulse Ox O2 Delivery O2 Flow Rate FiO2 01/16/17 14:53 36.8 69 18 131/70 97 Room Air 01/13/17 16:56 2 Intake and Output 01/15/17 01/15/17 01/16/17 Cumulative From/Thru 15:00 23:00 07:00 01/13/17 20:03 - 01/16/17 06:50 Intake Total 1136 ml 1216 ml 1342 ml 6872 ml Output Total 1600 ml 1400 ml 5450 ml Balance 1136 ml -384 ml -58 ml 1422 ml Intake Oral 1136 ml 1096 ml 1342 ml 4735 ml IV Total 120 ml 1608 ml Packed Cells 529 ml Output Urine Total 1600 ml 1400 ml 5450 ml # Voids 1 2 # Bowel Movements 0 0 1 General: Alert, Oriented X3 Head: Normal Eyes: PERRLA, EOMI Mouth: Lips, Mouth Normal Neck: Other (low transverse surgical scar, no palpable masses, soft tissue swelling and induration) Chest & Lungs: Clear to auscultation & percussion Cardiovascular: Regular Rate/Rhythm, Normal S1, Normal S2 Abdomen: Non-tender, Non-distended Musculoskeletal: Normal Range of Motion Extremities: No cyanosis/clubbing/edma bilat, No Edema Neurological: Cranial Nerves 2-12 Intact, Sensation Intact, Cerebellar Function nl Finger-Nose, Other (postive [place]ek; reflexes 3/5 bilat) Lab and Diagnostics Labs Total Ca++ 6.7 PO$ 6.6 Mg 1.7 Alb 3.1 PTH (01/14) is pending 25-OH Vit D 6.6 ng/ml Result Diagram: 01/15/17 0638 01/16/17 0645 X-Rays, CTs and MRIs PROCEDURE: MRI STROKE PROTOCOL ([id number]) NECK MR ANGIOGRAM: 1. Normal carotid arteries and vertebral arteries bilaterally. 2. A large left thyroid mass. Please correlate with findings on neck CT and thyroid ultrasound. The estimate of stenosis included in the report of the imaging study was calculated using the NASCET method Dictated by: Eugenie Torrez M.D. on 01/14/2017 at 11:34 PROCEDURE: US SOFT TISSUE OF HEAD OR NECK SONOGRAM IMPRESSION: 1. No discrete fluid collections in the surgical bed to suggest a definite abscess or hematoma. 2. Segmental occlusion of a superficial vein in the right anterior neck compatible with thrombophlebitis. Dictated by: Catalino Solis M.D. on 01/15/2017 at 11:46 . Assessment & Plan Assessment Symptomatic hypocalcemia due to post surgical hypoparathyroidism. This may have contributed to syncope by lowering seizure threshold, or by calcium diuresis leading to hypovolemia. Complicating factor in this case is prior gastric bypass with severe hypovitaminosis D and poor calcium absorption. 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 While not true hungry bone syndrome (seen in primary hyperparathyroidism) she undoubtedly has bone calcium deficit. Hypomagnesemia may also contribute somewhat to low PTH levels. The main management issue, at present, is to find an oral regimen that maintains safe but slightly low calcium levels with minimal symptoms. She may require higher than average 1,25-OH Vit D supplementation due to loss of jejunal absorption capacity. Her hyperphosphatemia is due to PTH deficiency, but does not require specific treatment. Higher dose calcium carbonate will provide some phosphate binder. The prognosis of parathyroid recovery is unclear, and will be evaluated over time by her Darion Leary quality improvement analyst, and [place] surgeon. She will require aggressive calcium and activated vitamin D supplement. RECOMMENDATIONS: #1 Calcium carbonate 1.5 gm TID scheduled #2 discontinue IV calcium, unless clinical emergency, as this confounds the testing of the oral regimen #3 serum ionized and total calcium in the AM #4 continue Rocaltrol at 0.5 mcg BID scheduled #5 continue current thyroid hormone replacement 137.5 mcg/d #6 check magnesium and supplement orally to mid-normal range if tolerated #7 check Trousseau and Chvostek sign when serum Ca++ stabilized at >7.0 with minimally low ionized calcium Thank you for this interesting consult. I will continue to follow. I can be reached at [phone]. Problems: Pain Evaluation: Pain not Controlled VTE Prophylaxis: Sub-Q Heparin (Unfractionated), SCDs VTE Mechanical Devices: Intermittant Pneumatic CD Resuscitation Status: CPR: Attempt Resuscitation Time spent 75 minutes Abdiaziz Gallardo MD January 16, 2017 18:55
[2017-01-16] MEDS: Morphine ER 30 mg (MS Contin) Tablet PO SCH (20:28)
[2017-01-16] MEDS: Venlafaxine XR 75 mg ER24 Capsule PO SCH (20:35)
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
[2017-01-16] MEDS: REMOVE XX SCH (22:48)
[2017-01-17] VITALS (7 sets, daily range): BP systolic 111–134; BP diastolic 71–83; PULSE 74–85; RESP 18; O2SAT 95–97
[2017-01-17] MEDS: Heparin 5,000 Unit/mL Inj SUBQ SCH ×3 (00:40→17:08)
[2017-01-17] MEDS: HYDROcodone-APAP 5-325 mg Tablet PO PRN ×5 (02:06→21:45)
--- NOTE | 2017-01-17 05:46 | NUR ---
Pain: Medicated for pain x2 tonight. Pain reported to back, hips, shoulders. Able to get some light sleep between care.
[2017-01-17] MEDS: Divalproex (QD) 250 mg ER24 Tablet PO SCH ×3 (08:09→21:02)
[2017-01-17] MEDS: Morphine ER 30 mg (MS Contin) Tablet PO SCH ×2 (08:10→21:01)
--- NOTE | 2017-01-17 13:22 | NUR ---
SW - Readiness for Discharge Data: Pt is on day 4 of hospitalization for syncope, hypocalcemia, abnorman head CT. EMR reviewed. Per morning rounds pt is not medically ready for discharge, is being switched to PO medication and will likely discharge tomorrow. PT and ST have cleared pt to return home, no needs. Pt to discharge home via family when medically ready. No further needs assessed. SW will continue to follow. Assessment: Pt who is independent at baseline Plan: Pt likely to discharge home via POV when medically ready. NO further needs assessed. SW will continue to follow. FLORA Castorena
--- NOTE | 2017-01-17 18:41 | PCM.CHPMED ---
Subjective Date of Service: January 17, 2017 Primary Physician: Admitting Physician: Joan Robins DO Primary Care Physician: Khloe Khan MD Attending Physician: Joan Robins DO Chief Complaint: Chief Complaint: Endocrinology Inpatient Consult (subsequent): Follow-up to initial endocrine consultation on 01/16 consult regarding 51 yo woman admitted for syncope experiencing post-thyroidectomy hypoparathyroidism. History of Present Illness: Pt. was admitted with syncope and encephalopathy, but feels at her baseline. No further episodes of confusion or syncope. states her mental functioning is at baseline. PMH Allergies: Coded Allergies: Penicillins (Verified Allergy, Severe, Shortness of Breath, Swelling, 01/13) Social History Hx Alcohol Use: NoHx Substance Use: NoHx Tobacco Use: Yes Smoking Status: Current Some Day Smoker Living Arrangement: with Family Exam Vital Signs Vital Sign - Last Date Time Temp Pulse Resp B/P Pulse Ox O2 Delivery O2 Flow Rate FiO2 01/17/17 16:07 36.7 82 18 130/83 95 Room Air 01/13/17 16:56 2 Intake and Output 01/16/17 01/16/17 01/17/17 Cumulative From/Thru 15:00 23:00 07:00 01/13/17 20:03 - 01/17/17 06:26 Intake Total 650 ml 400 ml 7922 ml Output Total 1600 ml 7050 ml Balance -950 ml 400 ml 872 ml Intake Oral 650 ml 400 ml 5785 ml IV Total 1608 ml Packed Cells 529 ml Output Urine Total 1600 ml 7050 ml # Voids 4 6 # Bowel Movements 0 0 1 General: Alert, Oriented X3 Head: Normal Eyes: PERRLA, EOMI Mouth: Mucous Membr Moist/[place] Neck: Other (healing surgical scar without induration, erythema or exudate.) Chest & Lungs: Auscultation (normal) Cardiovascular: Regular Rate/Rhythm, Normal S1, Normal S2, No Murmurs/Rubs/ Gallops Abdomen: Non-tender, Non-distended Musculoskeletal: Unremarkable Neurological: Grossly Neurologically Intact (reflexes 3+ symmetric), Cranial Nerves 2-12 Intact, Strength Normal 4/4 ext Additional Information: Trousseau sign positive within 1 minute of suprasystolic blood pressure cuff inflation. Lab and Diagnostics Labs Serum total calcium today 6.8 with albumin 3.3. Result Diagram: 01/15/17 0638 01/17/17 0650 12-lead ECG 01/17/17 EKG with normal sinus rhythm normal axes and intervals. QTC is now 460 ms (was 487 on admission) Additional Diagnostics: EEG is unremarkable. Assessment & Plan Assessment Symptomatic hypocalcemia due to post surgical hypoparathyroidism. She demonstrates clinical signs of hypocalcemia with hyperreflexia, [place] sign, Trousseau sign. Her baseline presurgery serum calcium was 7.5, but she is now significantly lower. She was on 1.5 g calcium carbonate 4 times a day with 1, 25 dihydroxy vitamin D (Rocaltrol) 0.5 g twice a day prior to admission. This regimen is not sustained adequate calcium so far, likely due to poor vitamin D and calcium absorption. Fortunately her QTC is not prolonged and she has had no seizures. We will increase both vitamin D and calcium today and if serum calcium is greater than 7.0 then she may be discharged on her increased regimen. It is unclear whether hypocalcemia contributed to her syncope and encephalopathy. This may have contributed to syncope by lowering seizure threshold, or by calcium diuresis leading to hypovolemia. Complicating factor in this case is prior gastric bypass with severe hypovitaminosis D, due to reduced jejunal absorption sites.. 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 Hypomagnesemia may also contribute somewhat to low PTH levels. The main management issue, at present, is to find an oral regimen that maintains safe but slightly low calcium levels with minimal symptoms. She is not RECOMMENDATIONS: #1 increase Calcium carbonate 2 g 4 times a day scheduled #2 discontinue IV calcium, unless clinical emergency, as this confounds the testing of the oral regimen #3 increase Rocaltrol from 0.5 mcg to 1.0 g BID scheduled #5 continue current thyroid hormone replacement 137.5 mcg/d #6 check total serum calcium and magnesium in a.m. Thank you for this interesting consult. I will continue to follow. I can be reached at [phone]. I am happy to see patient for outpatient follow-up in endocrinology clinic if referral is submitted at time of discharge. Problems: Pain Evaluation: Pain not Controlled VTE Prophylaxis: Sub-Q Heparin (Unfractionated), SCDs VTE Mechanical Devices: Intermittant Pneumatic CD Resuscitation Status: CPR: Attempt Resuscitation Time spent 30 minutes Abdiaziz Gallardo MD January 17, 2017 18:41
--- NOTE | 2017-01-17 20:49 | PCM.PNMED ---
Subjective Date of Service January 17, 2017 Subjective Patient is seen and examined. Earlier in the day she was getting restless in her room, wanted to go home. I encouraged her to walk as much as possible, she may take the telemetry off for showering. She calmed down and agreed to stay. We emphasized the importance of titrating her oral medications before she goes home. Exam Vital Signs Vital Sign - Last Date Time Temp Pulse Resp B/P Pulse Ox O2 Delivery O2 Flow Rate FiO2 01/17/17 20:04 36.4 74 18 134/71 96 Room Air 01/13/17 16:56 2 Intake and Output 01/16/17 01/16/17 01/17/17 Cumulative From/Thru 15:00 23:00 07:00 01/13/17 20:03 - 01/17/17 06:26 Intake Total 650 ml 400 ml 7922 ml Output Total 1600 ml 7050 ml Balance -950 ml 400 ml 872 ml Intake Oral 650 ml 400 ml 5785 ml IV Total 1608 ml Packed Cells 529 ml Output Urine Total 1600 ml 7050 ml # Voids 4 6 # Bowel Movements 0 0 1 Exam Gen.: Pleasant female in no acute distress HEENT: Normocephalic, atraumatic well-healing surgical incisions below the thyroid level Neck: Negative for thyroid place, negative for JVD, Trachea central Lungs: Clear to auscultation bilaterally no crackles or wheezes Abdomen soft nondistended Extremities negative for edema Psychiatric negative for anxiety Neuro: No focal deficits, positive chovostek sign IVs and Medications IV Fluids None Medications Reviewed: Medications were reviewed in detail Lab and Diagnostics Laboratory Tests Test 01/17/17 06:50 Sodium Level 139mEq/L (134-144) Potassium Level 4.4mEq/L (3.5-5.2) Chloride Level 98mEq/L (97-108) Carbon Dioxide Level 27mmol/L (18-29) Blood Urea Nitrogen 9mg/dL (6-24) Creatinine 0.60mg/dL (0.57-1.00) Estimat Glomerular Filtration Rate 152mL/min (>59) Glucose Level 90mg/dL (60-99) Calcium Level 6.8mg/dL (8.5-10.1) Ionized Calcium (Calculated) 3.35mg/dL (3.5-5.2) Total Bilirubin 0.2mg/dL (0.0-1.2) Aspartate Amino Transf (AST/SGOT) 18U/L (0-50) Alanine Aminotransferase (ALT/SGPT) 16U/L (0-32) Alkaline Phosphatase 68U/L (25-150) Total Protein 5.6g/dL (6.4-8.4) Albumin 3.3g/dL (3.4-5.0) Microbiology 01/13/17 Blood Culture - Preliminary, Resulted No growth at 2 days; culture examined... 01/14/17 Stool Occult Blood (NATALIE) - Final, Complete Result Diagram: 01/15/17 0638 01/17/17 0650 X-Rays, CTs and MRIs PROCEDURE: CT BRAIN WITHOUT CONTRAST ([id number]) IMPRESSION: 1. No acute intracranial hemorrhage. 2. Diffuse edema involving the left parietal and possibly left occipital lobes with blurring of the presley-white matter junction is suspicious for acute ischemia. Other etiologies cannot be excluded. MRI would be helpful for better evaluation. 3. Mild inferior maxillary sinus disease. " Neck US IMPRESSION: 1. No discrete fluid collections in the surgical bed to suggest a definite abscess or hematoma. 2. Segmental occlusion of a superficial vein in the right anterior neck compatible with thrombophlebitis. If clinical concern persists, recommend further evaluation with CT." Assessment & Plan 51 yo F history of depression, htn, seizure disorder, and recent thyroidectomy who presented to the ED due to syncopal episode with noted aphasia. Admitted for evaluation of CVA vs Seizure, Hypocalcemia 1. Syncopal Episode, POA, resolved -Possibly due to Seizure secondary to multiple medications lower seizure threshold or secondary to her severe Hypocalcemia. Could also be due to a CVA since she does have the acute ischemia noted on CT scan. -Patient's Valproic acid levels were subtherapeutic and she is on multiple seizure threshold lowering medications. -continue dose of depakot, recheck level in AM -eeg is done, normal per Dr. Lemus 2. Left parietal-occipital abnormality on CT, possible ischemia, POA, active -MRI/MRA brain normal,,, no evidence of findings noted on CT, Motion artifact? 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 Jones, patient's thyroid surgeon is contacted: Surgeon was contacted and he has no further recommendations. Does say that her baseline calcium is 7.5 prior to the surgery -- Endocrinology is consulted: Switch patient to Tums 1500 mg 4 times a day, ionized calcium levels are ordered for 01/17 -- Dr. Gallardo's recommendations from 01/17:"#1 increase Calcium carbonate 2 g 4 times a day scheduled #2 discontinue IV calcium, unless clinical emergency, as this confounds the testing of the oral regimen #3 increase Rocaltrol from 0.5 mcg to 1.0 g BID scheduled" -- Encouraged patient to wait until Dr. Gallardo figures out the home-going dose for her calcium and calcitriol. She is in agreement 4- Microcytic Anemia, POA, active -Chronicity unknown, likely due to iron deficiency. Pt provides no s/s of acute bleeding. She has been without teeth for 2 years now and struggles to eat any high iron meals. -Ht 22.7 today, 2 unit PRC 01/14/17, cbc today hb now 8.6 -ferrous gluconate bid: 5- Recent thyroidectomy and parathyroidectomy, POA, active -TSH and FT4 OK, continue synthroid .137 -thyroid mass L side per CT, will obtain ultrasound 6-Seizure disorder, POA, active -Patient's Valproic level was subtherapeutic at 23.0 on admission -Will plan to continue the Divalproex and recheck level in am -Will implement seizure precautions. -EEG in the AM.: She had the test done, f/u on results: Dr. Lemus says it is normal 7. Anxiety and depression, POA, stable -Plan to continue patient's Venlafaxine, Buspirone, and Duloxetine for now. She has fairly severe anxiety -Ativan when necessary for agitation and anxiety -- Left a message for PCP to call back patient sees Dr. Khloe berumen: Contacted PCP regarding multiple overlapping medications. PCP stated that patient is very difficult to manage and very complicated. I recommended to her that patient be seen by a psychiatrist for her anxiety as she is on 4 medications for this. Also mentioned patient being on both Robaxin and Flexeril for muscle relaxer. 8.H/O Hormone Replacement Therapy, POA, stable -Currently on Estradiol 0.5mg daily for years. -In this high risk patient, will decrease dose to Estradiol 0.25mg daily. She should be evaluated and tapered off as appropriate. 9- Chronic LBP, POA, stable -Patient is on high dose narcotics for her back and hip pain. Recent increased to MS Contin 30mg BID. restarted MS Contin 30 mg twice a day, Morphine IR started at full dose. -- Still holding tramadol, robaxin 10- Essential hypertension, POA, stable -We will start lisinopril 517 a.m. 11. Superficial thrombophlebitis of neck: -- We will consider ordering a follow-up ultrasound if she complains of pain or symptoms Tylenol when necessary for fever/pain Zofran when necessary for nausea Bowel regimen when necessary for constipation CODE STATUS: Full resuscitation Disposition: Patient is admitted under inpatient status with expected length of stay greater than 2 midnights due to risk of adverse events, decompensation, and medical complexity Pain Evaluation: Adequate Pain Control VTE Prophylaxis: Sub-Q Heparin (Unfractionated), SCDs VTE Mechanical Devices: Intermittant Pneumatic CD Resuscitation Status: CPR: Attempt Resuscitation Time spent 25 minutes Emeli Pandya DO January 17, 2017 20:49
[2017-01-17] MEDS: Venlafaxine XR 75 mg ER24 Capsule PO SCH (21:03)
[2017-01-17] MEDS: REMOVE XX SCH (22:46)
[2017-01-18] MEDS: Heparin 5,000 Unit/mL Inj SUBQ SCH ×2 (00:51→08:57)
[2017-01-18 01:16] VITALS: BP 128/71; PULSE 72; RESP 18; O2SAT 97
--- NOTE | 2017-01-18 04:28 | NUR ---
PAIN/ACTIVITY Patient has continued to c/o chronic pain, managed with normal routine of pain medications. Somewhat more anxious, ready to discharge and has been pacing more in her room and asking frequently for snacks. Had to set limits on nighttime snacks and encourage to sleep.
[2017-01-18] MEDS: HYDROcodone-APAP 5-325 mg Tablet PO PRN ×3 (04:44→12:29)
[2017-01-18 04:49] VITALS: BP 121/72; PULSE 80; RESP 18; O2SAT 98
[2017-01-18 08:00] LABS: Magnesium 1.9 mg/dL (1.6-2.6); Phosphorus 7.2 mg/dL (2.5-4.9)
[2017-01-18] MEDS: Morphine ER 30 mg (MS Contin) Tablet PO SCH (08:46)
[2017-01-18] MEDS: Divalproex (QD) 250 mg ER24 Tablet PO SCH ×2 (08:48→12:31)
[2017-01-18 09:08] VITALS: BP 121/72; PULSE 80; RESP 18; O2SAT 99
[2017-01-18 11:27] VITALS: PULSE 83
--- NOTE | 2017-01-18 11:55 | PCM.CHPMED ---
Subjective Date of Service: January 18, 2017 Primary Physician: Admitting Physician: Joan Robins DO Primary Care Physician: Khloe Khan MD Attending Physician: Joan Robins DO Chief Complaint: Chief Complaint: Endocrinology Inpatient Consult (subsequent): Follow-up to initial endocrine consultation on 01/16 consult regarding 51 yo woman admitted for syncope experiencing post-thyroidectomy hypoparathyroidism. History of Present Illness: Pt. was admitted with syncope and encephalopathy, which has not returned. Currently she feels at her baseline. Spontaneous leg muscle cramps have improved. Rocaltrol was increased to 1 g twice a day and calcium carbonate was increased to 2000 mg 4 times a day yesterday evening. PMH Allergies: Coded Allergies: Penicillins (Verified Allergy, Severe, Shortness of Breath, Swelling, 01/13) Social History Hx Alcohol Use: NoHx Substance Use: NoHx Tobacco Use: Yes Smoking Status: Current Some Day Smoker Living Arrangement: with Family Exam Vital Signs Vital Sign - Last Date Time Temp Pulse Resp B/P Pulse Ox O2 Delivery O2 Flow Rate FiO2 01/18/17 11:27 83 01/18/17 09:08 36.6 18 121/72 99 Room Air 01/13/17 16:56 2 Intake and Output 01/17/17 01/17/17 01/18/17 Cumulative From/Thru 15:00 23:00 07:00 01/13/17 20:03 - 01/18/17 06:17 Intake Total 800 ml 800 ml 9522 ml Output Total 7050 ml Balance 800 ml 800 ml 2472 ml Intake Oral 800 ml 800 ml 7385 ml IV Total 1608 ml Packed Cells 529 ml Output Urine Total 7050 ml # Voids 5 6 17 # Bowel Movements 0 0 1 General: Alert, Oriented X3 Head: Other ([place] sign is not reactive today) Neck: Tenderness, Other (postsurgical induration left greater than right, no erythema, no exudate, mild tenderness) Chest & Lungs: Auscultation (normal) Cardiovascular: Regular Rate/Rhythm Abdomen: Non-tender, Non-distended Extremities: No cyanosis/clubbing/edma bilat Neurological: Cranial Nerves 2-12 Intact, Other (reflexes 3+ symmetric bilateral. Trousseau sign positive.) Lab and Diagnostics Labs Ionized calcium calculation: 3.46 on 01/15, 3.35 on 01/17, reporting 47 on 01/18 ( 3.5-5.2) Total serum calcium today 6.9 with most recent albumin 3.1 PTH level is pending from 01/14 TSH 0.583, free T4 1 0.13 on 01/14 Result Diagram: 01/15/17 0638 01/18/17 0720 Assessment & Plan Assessment She is now minimally symptomatic with improve muscle cramps. QTC was mildly prolonged on admission is now improved. Continues to show carpopedal spasm but ionized calcium is nearly normal. Complicating factor in this case is prior gastric bypass with severe hypovitaminosis D, due to reduced jejunal absorption sites. She will require high-dose vitamin D and calcium supplementation. 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 Hypomagnesemia may also contribute somewhat to low PTH levels. She has significant hyperphosphatemia due to PTH deficiency. RECOMMENDATIONS: #1 discharge on Calcium carbonate 2 g 4 times a day scheduled #2 discharge with new prescription for Rocaltrol 1.0 g BID scheduled #3 continue current thyroid hormone replacement 137.5 mcg/d #4 she has appointment with me in endocrinology clinic at 3 PM on 01/20/17 #5 please order an ambulatory renal panel to be performed in the a.m. on 01/20 Thank you for this interesting consult. I will continue to follow. I can be reached at [phone]. I am happy to see patient for outpatient follow-up in endocrinology clinic if referral is submitted at time of discharge. Problems: Pain Evaluation: Adequate Pain Control VTE Prophylaxis: Sub-Q Heparin (Unfractionated), SCDs VTE Mechanical Devices: Intermittant Pneumatic CD Resuscitation Status: CPR: Attempt Resuscitation Time spent 25 minutes Abdiaziz Gallardo MD January 18, 2017 11:55
[2017-01-18] MEDS ORDERED: CALC0.257 PO (12:08)
[2017-01-18] MEDS ORDERED: CALC500T53 PO (12:08)
[2017-01-18] MEDS ORDERED: POLY17PO6 PO (12:08)
[2017-01-18] MEDS ORDERED: FERR325T20 PO (12:08)
--- NOTE | 2017-01-18 12:13 | PCM.DIMED ---
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 Please follow up with your PCP on continuation of iron supplementation. Diet Heart Healthy Activity No restrictions Call your provider Fever or Chills, Shortness of breath, Bleeding, Chest pain, Vomitting, Excessive diarrhea, Weakness (unilateral), Other Patient Instructions Follow-up plan See Dr. Gallardo on 01/20/17 as you are scheduled F/U with PCP in 7-10 days F/U with your thyroid surgeon as previously scheduled F/U BMP, phos, mag, calcium, ionized calcium prior to appointment with Dr. Gallardo on 01/20/17 F/U H&H prior to f/u with PCP Emeli Pandya DO January 18, 2017 12:12
--- NOTE | 2017-01-18 12:13 | PCM.DC.MED ---
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 No acute intracranial hemorrhage. 2. Diffuse edema involving the left parietal and possibly left occipital lobes with blurring of the presley-white matter junction is suspicious for acute ischemia. Other etiologies cannot be excluded. MRI would be helpful for better evaluation. 3. Mild inferior maxillary sinus disease. " Neck US IMPRESSION: 1. No discrete fluid collections in the surgical bed to suggest a definite abscess or hematoma. 2. Segmental occlusion of a superficial vein in the right anterior neck compatible with thrombophlebitis. If clinical concern persists, recommend further evaluation with CT. Brief History Pt. was admitted with syncope and encephalopathy, which has not returned. Currently she feels at her baseline. Spontaneous leg muscle cramps have improved. Rocaltrol was increased to 1 g twice a day and calcium carbonate was increased to 2000 mg 4 times a day yesterday evening. Hospital Course 51 yo F history of depression, htn, seizure disorder, and recent thyroidectomy who presented to the ED due to syncopal episode with noted aphasia. Admitted for evaluation of CVA vs Seizure, Hypocalcemia 1. Syncopal Episode, POA, resolved -Possibly due to Seizure secondary to multiple medications lower seizure threshold or secondary to her severe Hypocalcemia. Could also be due to a CVA since she does have the acute ischemia noted on CT scan. -Patient's Valproic acid levels were subtherapeutic and she is on multiple seizure threshold lowering medications. -continue dose of depakot, recheck level in AM -eeg is done, normal per Dr. Lemus 2. Left parietal-occipital abnormality on CT, possible ischemia, POA, active -MRI/MRA brain normal,,, no evidence of findings noted on CT, Motion artifact? 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 Jones, patient's thyroid surgeon is contacted: Surgeon was contacted and he has no further recommendations. Does say that her baseline calcium is 7.5 prior to the surgery -- Endocrinology is consulted: Switch patient to Tums 1500 mg 4 times a day, ionized calcium levels are ordered for 01/17 -- Dr. Gallardo's recommendations from 01/17:"#1 increase Calcium carbonate 2 g 4 times a day scheduled -- This is the regimen patient will be discharged on. -- Patient is ambulating in the [place], feeling much bettwe and asking to go home 4- Microcytic Anemia, POA, active -Chronicity unknown, likely due to iron deficiency. Pt provides no s/s of acute bleeding. She has been without teeth for 2 years now and struggles to eat any high iron meals. -Ht 22.7 today, 2 unit PRC 01/14/17 -ferrous gluconate bid: --stable 5- Recent thyroidectomy and parathyroidectomy, POA, active -TSH and FT4 OK, continue synthroid .137 -thyroid mass L side per CT, probably post surgical changes 6-Seizure disorder, POA, active -Patient's Valproic level was subtherapeutic at 23.0 on admission -Will plan to continue the Divalproex and recheck level in am -Will implement seizure precautions. -EEG in the AM.: She had the test done, f/u on results: Dr. Lemus says it is normal 7. Anxiety and depression, POA, stable -Plan to continue patient's Venlafaxine, Buspirone, and Duloxetine for now. She has fairly severe anxiety -Ativan when necessary for agitation and anxiety -- Left a message for PCP to call back patient sees Dr. Khloe stacy-ed: Contacted PCP regarding multiple overlapping medications. PCP stated that patient is very difficult to manage and very complicated. I recommended to her that patient be seen by a psychiatrist for her anxiety as she is on 4 medications for this. Also mentioned patient being on both Robaxin and Flexeril for muscle relaxer. 8.H/O Hormone Replacement Therapy, POA, stable -Currently on Estradiol 0.5mg daily for years. -In this high risk patient, PCP is requested to consider tapering patient off. 9- Chronic LBP, POA, stable -Patient is on high dose narcotics for her back and hip pain. Recent increased to MS Contin 30mg BID. restarted MS Contin 30 mg twice a day, Morphine IR started at full dose. -- Still holding tramadol, robaxin 10- Essential hypertension, POA, stable -We will start lisinopril 01/18 a.m. 11. Superficial thrombophlebitis of neck: -- We will consider ordering a follow-up ultrasound if she complains of pain or symptoms Tylenol when necessary for fever/pain Zofran when necessary for nausea Bowel regimen when necessary for constipation CODE STATUS: Full resuscitation Exam Vital Signs (Last) Date Time Temp Pulse Resp B/P Pulse Ox O2 Delivery O2 Flow Rate FiO2 01/18/17 11:27 83 01/18/17 09:08 36.6 18 121/72 99 Room Air 01/13/17 16:56 2 Exam Gen.: Pleasant female in no acute distress HEENT: Normocephalic, atraumatic well-healing surgical incisions below the thyroid level Neck: Negative for thyroid place, negative for JVD, Trachea central Lungs: Clear to auscultation bilaterally no crackles or wheezes Abdomen soft nondistended Extremities negative for edema Psychiatric negative for anxiety Neuro: No focal deficits Test 01/13/17 16:38 01/13/17 17:30 01/13/17 19:47 01/13/17 20:05 Hemoglobin A1c 5.5% (4.8-5.6) Lactic Acid Level 1.3mmol/L (0.4-2.0) Salicylates Level < 3.0ug/mL (30-250) Acetaminophen Level < 15.0ug/mL Rx (10-25) Phenytoin (Dilantin) Level < 0.8uG/mL (10.0-20.0) Levetiracetam (Keppra) Level None detectedug/mL Alcohols < 10mg/dL (0-10) Iron Level 29ug/dL (35-150) Total Iron Binding Capacity 421ug/dL (250-450) Percent Iron Saturation 7%sat (15-50) Unsaturated Iron Binding 391.6ug/dL Ferritin 10ng/mL (13-150) Urine Color Yellow (YELLOW) Urine Appearance Clear (CLEAR,HAZY) Urine pH 6.0 (5.0-8.0) Urine Specific [place] 1.010 (1.003-1.035) Urine Protein Negativemg/dL (NEG,TRACE) Urine Glucose (UA) Negativemg/dL (NEGATIVE) Urine Ketones Negativemg/dL (NEGATIVE) Urine Occult Blood Negative (NEGATIVE) Urine Nitrite Negative (NEGATIVE) Urine Bilirubin Negative (NEGATIVE) Urine Urobilinogen Normalmg/dL (NORMAL) Urine Leukocyte Esterase Negative (NEGATIVE) Urine RBC 0-2/hpf (0-2) Urine WBC 0-5/hpf (0-5) Urine Epithelial Cells Few/hpf (NONE-MOD) Urine Crystals None seen (NONE SEEN) Urine Bacteria None/hpf (NONE-FEW) Urine Hyaline Casts None/lpf (NONE) Urine Granular Casts None seen (NONE SEEN) Urine Waxy Casts None seen (NONE SEEN) Urine Red Blood Cell Casts None seen (NONE SEEN) Urine White Blood Cell Casts None seen (NONE SEEN) Urine Mucus Present (None Seen) Urine Trichomonas None seen (NONE SEEN) Urine Yeast None (NONE SEEN) Urine Culture Reflexed Not indicated Prothrombin Time 10.1sec (8.1-12.5) Prothromb Time International Ratio 0.95ratio Test 01/13/17 22:45 01/13/17 23:45 01/14/17 06:00 01/15/17 06:38 Triglycerides Level 127mg/dL (0-149) Cholesterol Level 129mg/dL (100-199) LDL Cholesterol, Calculated 51.600mg/dL (0-99) VLDL Cholesterol 25.400mg/dL HDL Cholesterol 52mg/dL (>39) Cholesterol/HDL Ratio 2.48 (0.0-4.4) Vitamin D 25-Hydroxy 6.6ng/mL (30.0-100.0) Neutrophils (%) (Auto) 45.0% (40-74) Lymphocytes (%) (Auto) 32.6% (14-46) Monocytes (%) (Auto) 12.7% (4-12) Eosinophils (%) (Auto) 7.5% (0-5) Basophils (%) (Auto) 1.5% (0-3) Thyroid Stimulating Hormone (TSH) 0.583uIU/mL (0.450-4.500) Free Thyroxine 1.13ng/dL (0.82-1.77) White Blood Count 3.2th/mm3 (3.8-10.1) Red Blood Count 3.86mil/mm3 (3.90-5.20) Hemoglobin 8.6g/dL (12.0-15.6) Hematocrit 28.5% (35.0-46.0) Mean Corpuscular Volume 73.8fL (81-100) Mean Corpuscular Hemoglobin 22.3pg (27.0-35.0) Mean Corpuscular Hemoglobin Concent 30.2% (32.0-37.0) Red Cell Distribution Width 16.0% (12.3-15.4) Platelet Count 234bil/L (150-400) Valproic Acid (Depakene) Level 35ug/mL (50-125) Test 01/17/17 06:50 01/18/17 07:20 Estimat Glomerular Filtration Rate 152mL/min (>59) Total Bilirubin 0.2mg/dL (0.0-1.2) Aspartate Amino Transf (AST/SGOT) 18U/L (0-50) Alanine Aminotransferase (ALT/SGPT) 16U/L (0-32) Alkaline Phosphatase 68U/L (25-150) Sodium Level 138mEq/L (134-144) Potassium Level 4.7mEq/L (3.5-5.2) Chloride Level 98mEq/L (97-108) Carbon Dioxide Level 29mmol/L (18-29) Blood Urea Nitrogen 12mg/dL (6-24) Creatinine 0.59mg/dL (0.57-1.00) Glucose Level 95mg/dL (60-99) Calcium Level 6.9mg/dL (8.5-10.1) Ionized Calcium (Calculated) 3.47mg/dL (3.5-5.2) Phosphorus Level 7.2mg/dL (2.5-4.9) Magnesium Level 1.9mg/dL (1.6-2.6) Total Protein 5.4g/dL (6.4-8.4) Albumin 3.1g/dL (3.4-5.0) Discharge Medications Discharge Medications Buspirone (Buspirone) 15 Mg Tablet 15 MG PO TID (Reported) Calcitriol (Rocaltrol) 0.25 Mcg Capsule 1 MCG PO BID Prescribed by: EMELI CHUA DO Calcium Carbonate (Calcium Carbonate) 200 Mg Tab.chew 2,000 MG PO QID Prescribed by: EMELI CHUA DO Cyanocobalamin (Vitamin B-12) (Nascobal) 1 Each [place] 1 EACH NS WEEKLY (Reported ) 500 MCG ON MONDAYS Divalproex ER (Divalproex ER) 250 Mg Tab.er.24h 250 MG PO TID (Reported) *DAILY DOSING ONLY* Swallowed whole without chewing to avoid local irritation of the mouth and throat. Duloxetine (Duloxetine) 60 Mg Capsule.dr 60 MG PO QAM (Reported) Estradiol (Estradiol) 0.5 Mg Tablet 0.5 MG PO QAM (Reported) Ferrous Gluconate (Ferrous Gluconate) 324 Mg Tablet 324 MG PO TIDWM Prescribed by: EMELI CHUA DO Furosemide (Furosemide) 20 Mg Tab 20 MG PO QAM (Reported) Gabapentin (Gabapentin) 300 Mg Capsule 900 MG PO TID (Reported) Hydroxyzine Pamoate (HydrOXYzine Pamoate) 25 Mg Capsule 25-50 MG PO HS (Reported ) Levothyroxine (Levothyroxine) 137 Mcg Tablet 137 MCG PO QAM (Reported) Lisinopril (Lisinopril) 10 Mg Tablet 10 MG PO QAM (Reported) Morphine Sulfate ER (MS Contin) 30 Mg Tablet.er 30 MG PO BID (Reported) Venlafaxine ER (Venlafaxine ER) 150 Mg Tab.er.24 150 MG PO HS (Reported) As needed Cyclobenzaprine (Cyclobenzaprine) 10 Mg Tablet 10 MG PO BID PRN PRN Spasm ( Reported) Diclofenac Gel (Diclofenac Gel) 100 Gm Tube 4 GM TOPICAL QID PRN PRN JOINT PAIN (Reported) Fluticasone Propionate (Fluticasone Propionate) 50 Mcg/Actuation [place].susp 1 SPRAY NS DAILY PRN PRN RHINITIS (Reported) Lidocaine (Lidoderm) 700 Mg Adh..patch 1-3 PATCH TP DAILY PRN PRN For Pain ( Reported) 12 HRS ON, 12 HRS OFF Morphine Sulfate (Morphine Sulfate) 15 Mg Tablet 15 MG PO Q4H PRN PRN For Pain ( Reported) Polyethylene Glycol 3350 (Polyethylene Glycol 3350) 17 Gm Powd.pack 17 GM PO DAILY PRN PRN For Constipation (Reported) Polyethylene Glycol 3350 (Miralax) 17 Gm Powd.pack 17 GM PO DAILY PRN PRN For Constipation Prescribed by: EMELI CHUA DO Promethazine (Promethazine) 25 Mg Tablet 25 MG PO Q6H PRN PRN For Nausea/ Vomiting (Reported) Sumatriptan Succinate (Imitrex) 50 Mg Tablet 50 MG PO Q2H PRN PRN Headache ( Reported) TAKE 1 TABLET AT ONSET OF MIGRAINE, MAY REPEAT IN 2 HRS IF NEEDED. MAX 2 DOSES/24 HRS Tramadol (Tramadol) 50 Mg Tablet 50-100 MG PO Q6H PRN PRN For Pain (Reported) Additional med instructions Note the dose increase in your cacitrol and calcium supplements. Please follow up with your PCP on continuation of iron supplementation. Followup Plan Follow-up plan See Dr. Gallardo on 01/20/17 as you are scheduled F/U with PCP in 7-10 days F/U with your thyroid surgeon as previously scheduled F/U BMP, phos, mag, calcium, ionized calcium prior to appointment with Dr. Gallardo on 01/20/17 F/U H&H prior to f/u with PCP Discharge Diet: Heart Healthy Discharge Activity: No restrictions Time spent 35 min Emeli Chua DO January 18, 2017 12:13
--- NOTE | 2017-01-18 13:35 | NUR ---
Social Work: Discharge Data: Pt is on day 5 of hospitalization. EMR reviewed. D/C orders are in. No d/c planning needs at this time. [employer] UP PERSON will continue to follow if needs arise. Assessment: Pt who is independent at baseline. Plan: Pt will d/c home via POV today. No d/c planning needs at this time. [employer] LINE UP PERSON will continue to follow if needs arise. FLORA Shabazz
--- NOTE | 2017-01-18 14:56 | NUR ---
Discharge Patient received documents and teaching from student nurse and RN. Following the teaching, patient claimed to be comfortable with her plans for care and issued no questions. PIV pulled with no signs complications; she left the unit with her personal belongings at 1410, accompanied by the TIMBER KILLER and her .
== END 2017-01-18 14:13 | disposition home or self-care (01) | DRG 641 ==
LOC: SED 16:04 → EDBD 16:04 → MPC 19:41
PROVIDERS: ADMIT Internal Medicine; ATTEND Internal Medicine
PROC: 4A00X4Z Measurement of Central Nervous Electrical Activity, External Approach (ICD-10-PCS; principal; 2017-01-16)
DX: E83.81 Hungry bone syndrome (principal); G40.909 Epilepsy, unspecified, not intractable, without status epilepticus; I10 Essential (primary) hypertension; K21.9 Gastro-esophageal reflux disease without esophagitis; E89.0 Postprocedural hypothyroidism; F17.200 Nicotine dependence, unspecified, uncomplicated; D50.9 Iron deficiency anemia, unspecified; F41.8 Other specified anxiety disorders; G89.29 Other chronic pain; I99.8 Other disorder of circulatory system; E83.42 Hypomagnesemia; Z87.820 Personal history of traumatic brain injury; Z98.84 Bariatric surgery status; Z88.0 Allergy status to penicillin; Z79.890 Hormone replacement therapy